=== PATIENT | female | born 1970 | race Caucasian/White ===

== ENCOUNTER 2020-04-27 11:07 | Outpatient (REF) | payer OTHER, SELFPAY ==
[2020-04-27 12:33] LABS: MANUAL DIFF FLAG NO
[2020-04-27 12:47] LABS: Basophils Absolute Auto 0.1 X10*3/uL (0.0-0.2); Basophils Percent Auto 1.4 % (0-2); Eosinophils Absolute Auto 0.6 X10*3/uL (0.0-0.4); Eosinophils Percent Auto 6.6 % (0-4); Hematocrit 44.9 % (37-47); Hemoglobin 15.1 g/dl (12.0-16.0); Imm Gran Abs Auto 0.03 X10*3/uL (0.00-0.03); Imm Gran Pct Auto 0.3 % (0.0-0.4); Lymphocytes Absolute Auto 2.5 X10*3/uL (1.2-4.9); Lymphocytes Percent Auto 27.1 % (20-40); Mean Corpuscular HGB Conc 33.6 g/dl (31.0-35.0); Mean Corpuscular Hemoglobin 31.9 pg (27.0-33.0); Mean Corpuscular Volume 94.9 fL (80-98); Mean Platelet Volume 10.9 fL (9.4-12.3); Monocytes Absolute Auto 0.7 X10*3/uL (0.1-1.2); Monocytes Percent Auto 7.6 % (2-11); Neutrophils Absolute Auto 5.2 X10*3/uL (2.0-8.3); Platelet Count 354 X10*3/uL (160-400); Red Blood Count 4.73 X10*6/uL (4.20-5.50); Red Cell Distribution Width 13.9 % (11.0-16.0); White Blood Count 9.1 X10*3/uL (4.8-10.8)
[2020-04-27 13:03] LABS: Estimated Average Glucose 100 mg/dL; Hemoglobin A1c % 5.1 %
[2020-04-27 13:38] LABS: Alanine Aminotransferase 42 U/L (0-31); Albumin Level 4.3 g/dL (3.5-5.0); Alkaline Phosphatase 106 U/L (39-117); Anion Gap 13 (12-20); Aspartate Amino Transferase 28 U/L (5-31); Bilirubin Total 0.5 mg/dL (0.0-1.0); Blood Urea Nitrogen 16 mg/dL (9-16); C Reactive Protein 0.07 mg/dL (< or = 0.50); Calcium 9.6 mg/dL (8.4-10.2); Carbon Dioxide 26 mmol/L (22-29); Chloride 105 mmol/L (96-108); Cholesterol 226 mg/dL; Estimated Glomerular Filt Rate > 60; Glucose Random 99 mg/dL (60-115); HDL Cholesterol 76 mg/dL; Iron 147 mcg/dL (30-160); LDL Cholesterol Calculated 139 mg/dl; Percent Iron Saturation 52 % (15-50); Potassium 4.1 mmol/l (3.3-5.1); Sodium 140 mmol/L (135-145); Total Iron Binding Capacity 281 mcg/dL (228-428); Total Protein 6.9 g/dL (6.5-8.0); Triglycerides 56 mg/dL; Unsaturated Iron Binding 134 ug/dL
[2020-04-27 13:45] LABS: Ferritin 66 ng/mL (10-250); TSH reflex Free T4 1.15 mIU/mL (0.32-4.0); Vitamin D 25-OH Total 50.4 ng/mL (>30)
[2020-04-27 14:04] LABS: Vitamin B12 621 pg/mL (200-900)
[2020-04-29 15:46] LABS: Zinc 83 mcg/dL (60-130)
[2020-05-02 12:22] LABS: Vitamin B1 17 nmol/L (8-30)
[2020-05-03 18:16] LABS: Vitamin A 53 mcg/dL (38-98)
== END 2020-04-27 11:08 | disposition home or self-care (01) ==
LOC: HO.LAB 11:07
PROVIDERS: PCP Internal Medicine; Visit Provider Surgery
DX: K91.2 Postsurgical malabsorption, not elsewhere classified (principal)
CPT/HCPCS: 36415; 80053; 80061; 82306; 82607; 82728; 82746; 83036; 83525; 83540; 84425; 84443; 84590; 84630; 85025; 86140

== ENCOUNTER → 2020-05-16 14:31 | Outpatient (BNVA) | payer OTHER, SELFPAY | PROVIDERS: PCP Internal Medicine; Visit Provider Surgery | DX: E65 Localized adiposity (principal); F17.200 Nicotine dependence, unspecified, uncomplicated; Z90.3 Acquired absence of stomach [part of] | CPT/HCPCS: 99212 ==

== ENCOUNTER → 2020-09-11 11:30 | Outpatient (BNVA) | payer OTHER, SELFPAY | PROVIDERS: PCP Internal Medicine; Visit Provider Physician Assistant | DX: K91.2 Postsurgical malabsorption, not elsewhere classified (principal); F17.200 Nicotine dependence, unspecified, uncomplicated; Z90.3 Acquired absence of stomach [part of] | CPT/HCPCS: 99212 ==

== ENCOUNTER → 2020-10-17 13:03 | Outpatient (BNVA) | payer OTHER, SELFPAY | PROVIDERS: PCP Internal Medicine; Referring Provider Internal Medicine; Visit Provider Dietitian, Registered | DX: Z68.25 Body mass index [BMI] 25.0-25.9, adult (principal); F17.210 Nicotine dependence, cigarettes, uncomplicated | CPT/HCPCS: 97803 ==

== ENCOUNTER → 2021-01-23 13:45 | Outpatient (BNVA) | payer MEDICARE, OTHER, SELFPAY | PROVIDERS: PCP Internal Medicine; Referring Provider Internal Medicine; Visit Provider Surgery | DX: E66.3 Overweight (principal); E65 Localized adiposity; F17.200 Nicotine dependence, unspecified, uncomplicated; Z90.3 Acquired absence of stomach [part of]; Z68.25 Body mass index [BMI] 25.0-25.9, adult | CPT/HCPCS: 99212 ==

== ENCOUNTER → 2021-04-13 08:09 | Outpatient (BNVA) | payer OTHER, MEDICARE, SELFPAY | PROVIDERS: PCP Internal Medicine; Visit Provider Dietitian, Registered | DX: E66.9 Obesity, unspecified (principal); Z68.25 Body mass index [BMI] 25.0-25.9, adult | CPT/HCPCS: 97803 ==

== ENCOUNTER 2021-04-20 10:04 | Outpatient (REF) | payer MEDICARE, OTHER, SELFPAY ==
[2021-04-20 10:40] LABS: MANUAL DIFF FLAG NO
[2021-04-20 10:55] LABS: Basophils Absolute Auto 0.1 X10*3/uL (0.0-0.2); Basophils Percent Auto 1.3 % (0-2); Eosinophils Absolute Auto 0.1 X10*3/uL (0.0-0.4); Eosinophils Percent Auto 2.3 % (0-4); Hematocrit 43.5 % (37.0-47.0); Hemoglobin 14.3 g/dl (12.0-16.0); Imm Gran Abs Auto 0.01 X10*3/uL (0.00-0.03); Imm Gran Pct Auto 0.2 % (0.0-0.4); Lymphocytes Absolute Auto 1.7 X10*3/uL (1.2-4.9); Lymphocytes Percent Auto 27.2 % (20-40); Mean Corpuscular HGB Conc 32.9 g/dl (31.0-35.0); Mean Corpuscular Hemoglobin 31.2 pg (27.0-33.0); Mean Platelet Volume 10.6 fL (9.4-12.3); Monocytes Absolute Auto 0.6 X10*3/uL (0.1-1.2); Monocytes Percent Auto 9.6 % (2-11); Neutrophils Absolute Auto 3.7 x10*3/uL (2.0-8.3); Neutrophils Percent Auto 59.4 % (45-73); Platelet Count 306 X10*3/uL (160-400); Red Blood Count 4.58 X10*6/uL (4.20-5.50); Red Cell Distribution Width 13.4 % (11.0-16.0); White Blood Count 6.2 X10*3/uL (4.8-10.8)
[2021-04-20 11:15] LABS: Estimated Average Glucose 91 mg/dL; Hemoglobin A1c % 4.8 %
[2021-04-20 11:34] LABS: Anion Gap 13 (12-20); Blood Urea Nitrogen 14 mg/dL (9-16); C Reactive Protein 0.05 mg/dL (< or = 0.50); Calcium 9.5 mg/dL (8.4-10.2); Carbon Dioxide 23 mmol/L (22-29); Chloride 108 mmol/L (96-108); Cholesterol 204 mg/dL; Estimated Glomerular Filt Rate > 60; Glucose Random 97 mg/dL (60-115); HDL Cholesterol 72 mg/dL; Iron 115 mcg/dL (30-160); LDL Cholesterol Calculated 120 mg/dl; Percent Iron Saturation 38 % (15-50); Potassium 4.6 mmol/L (3.3-5.1); Sodium 139 mmol/L (135-145); Total Iron Binding Capacity 304 mcg/dL (228-428); Triglycerides 60 mg/dL; Unsaturated Iron Binding 189 ug/dL
[2021-04-20 11:40] LABS: Ferritin 32 ng/mL (10-250); TSH reflex Free T4 1.51 uIU/mL (0.32-4.0); Vitamin D 25-OH Total 28.1 ng/mL (>30)
[2021-04-20 11:55] LABS: Folate 6.1 ng/mL (> or = 4.0); Vitamin B12 377 pg/mL (200-900)
[2021-04-23 12:01] LABS: Calcium (PTHI) 9.8 mg/dL (8.6-10.4); PTHI 40 pg/mL (14-64)
[2021-04-24 02:32] LABS: Zinc 75 mcg/dL (60-130)
[2021-04-24 21:56] LABS: Vitamin A 47 mcg/dL (38-98)
[2021-04-25 16:56] LABS: Vitamin B1 14 nmol/L (8-30)
== END 2021-04-20 10:05 | disposition home or self-care (01) ==
LOC: HO.LAB 10:04
PROVIDERS: PCP Internal Medicine; Visit Provider Physician Assistant Surgical
DX: E66.3 Overweight (principal); K91.2 Postsurgical malabsorption, not elsewhere classified; Z90.3 Acquired absence of stomach [part of]
CPT/HCPCS: 36415; 80048; 80061; 82306; 82607; 82728; 82746; 83036; 83540; 83970; 84425; 84443; 84590; 84630; 85025; 86140

== ENCOUNTER → 2021-10-03 08:07 | Outpatient (BNVA) | payer MEDICARE, OTHER, SELFPAY | PROVIDERS: PCP Internal Medicine; Visit Provider Physician Assistant Surgical | DX: Z13.89 Encounter for screening for other disorder (principal) | CPT/HCPCS: Q3014 ==

== ENCOUNTER 2022-04-08 11:04 | Outpatient (REF) | payer MEDICARE, SELFPAY ==
[2022-04-08 11:24] LABS: MANUAL DIFF FLAG NO
[2022-04-08 11:54] LABS: Basophils Absolute Auto 0.1 X10*3/uL (0.0-0.2); Basophils Percent Auto 1.5 % (0-2); Eosinophils Absolute Auto 0.2 X10*3/uL (0.0-0.4); Eosinophils Percent Auto 2.4 % (0-4); Hematocrit 44.9 % (37.0-47.0); Hemoglobin 14.9 g/dl (12.0-16.0); Imm Gran Abs Auto 0.01 X10*3/uL (0.00-0.03); Imm Gran Pct Auto 0.1 % (0.0-0.4); Lymphocytes Absolute Auto 1.9 X10*3/uL (1.2-4.9); Lymphocytes Percent Auto 26.2 % (20-40); Mean Corpuscular HGB Conc 33.2 g/dl (31.0-35.0); Mean Corpuscular Hemoglobin 32.1 pg (27.0-33.0); Mean Corpuscular Volume 96.8 fL (80.0-98.0); Mean Platelet Volume 10.8 fL (9.4-12.3); Monocytes Absolute Auto 0.7 X10*3/uL (0.1-1.2); Monocytes Percent Auto 8.8 % (2-11); Neutrophils Absolute Auto 4.5 x10*3/uL (2.0-8.3); Platelet Count 286 X10*3/uL (160-400); Red Blood Count 4.64 X10*6/uL (4.20-5.50); Red Cell Distribution Width 14.1 % (11.0-16.0); White Blood Count 7.4 X10*3/uL (4.8-10.8)
[2022-04-08 12:36] LABS: Alanine Aminotransferase 28 U/L (0-31); Albumin Level 4.5 g/dL (3.5-5.0); Alkaline Phosphatase 106 U/L (39-117); Anion Gap 15 (12-20); Aspartate Amino Transferase 23 U/L (5-31); Bilirubin Total 0.5 mg/dL (0.0-1.0); Blood Urea Nitrogen 16 mg/dL (9-16); C Reactive Protein 0.03 mg/dL (< or = 0.50); Calcium 9.8 mg/dL (8.4-10.2); Carbon Dioxide 25 mmol/L (22-29); Chloride 108 mmol/L (96-108); Cholesterol 219 mg/dL; Estimated Glomerular Filt Rate > 60; Glucose Random 93 mg/dL (60-115); HDL Cholesterol 78 mg/dL; Iron 115 mcg/dL (30-160); LDL Cholesterol Calculated 132 mg/dl; Percent Iron Saturation 35 % (15-50); Sodium 144 mmol/L (135-145); Total Iron Binding Capacity 328 mcg/dL (228-428); Total Protein 6.9 g/dL (6.5-8.0); Triglycerides 49 mg/dL; Unsaturated Iron Binding 213 ug/dL
[2022-04-08 12:58] LABS: Ferritin 20 ng/mL (10-250); Insulin 4 uU/mL (2-29); TSH reflex Free T4 1.26 uIU/mL (0.32-4.0); Vitamin D 25-OH Total 35.5 ng/mL (>30)
[2022-04-08 13:01] LABS: Folate 9.3 ng/mL (> or = 4.0); Vitamin B12 927 pg/mL (200-900)
[2022-04-09 11:41] LABS: Calcium (PTHI) 9.5 mg/dL (8.6-10.4); PTHI 50 pg/mL (16-77)
[2022-04-11 14:11] LABS: Zinc 81 mcg/dL (60-130)
[2022-04-12 18:40] LABS: Vitamin A 49 mcg/dL (38-98)
[2022-04-13 12:26] LABS: Vitamin B1 23 nmol/L (8-30)
== END 2022-04-08 11:05 | disposition home or self-care (01) ==
LOC: HO.LAB 11:04
PROVIDERS: Referring Provider Nurse Practitioner Adult Health; Visit Provider Physician Assistant Surgical
DX: K91.2 Postsurgical malabsorption, not elsewhere classified (principal); Z90.3 Acquired absence of stomach [part of]
CPT/HCPCS: 36415; 80053; 80061; 82306; 82607; 82728; 82746; 83525; 83540; 83970; 84425; 84443; 84590; 84630; 85025; 86140

== ENCOUNTER → 2022-04-12 10:37 | Outpatient (BNVA) | payer MEDICARE, SELFPAY | PROVIDERS: PCP Internal Medicine; Referring Provider Internal Medicine; Visit Provider Physician Assistant Surgical | DX: K90.49 Malabsorption due to intolerance, not elsewhere classified (principal); Z90.3 Acquired absence of stomach [part of] | CPT/HCPCS: 99212 ==

== ENCOUNTER 2024-02-06 10:05 | Outpatient (AMB) | payer MEDICARE, SELFPAY ==
--- NOTE | 2024-02-06 10:09 | MHC.OFFVISWM ---
VS Expanded 02/06/24 10:23 BP 130/59 L Blood Pressure Location Rt brachial Blood Pressure Position Sitting Pulse 84 Pulse Source Pulse Oximeter Temp 96.6 F L Temperature Source Temporal Artery Scan Pulse Oximetry 96 Oxygen Delivery Method Room Air Height 5 ft Weight 142 lb 12.8 oz BMI 27.9 Body Fat % 28.4 Body Fat Mass 40.6 Fat Free Mass 102.0 Visceral Fat Rating 7.0 Body Water % 50.7 Body Water Mass 72.4 Muscle Mass/Score 96.8 Basal Metabolic Rate/Score 1,362 Intake Visit Reasons: (OV) PO LSG 02/17/2019 Receivables Specialist Required: No Allergies shellfish derived [SHELLFISH DERIVED] Allergy (Unknown, Verified 02/06/24 10:12) HIVES,FACIAL SWELLING shellfish Allergy (Unknown, Uncoded 04/12/22 10:46) Hives Medication List - Last Reconciled 02/06/24 by TEOFILO Ortega calcium citrate-vitamin D3 315 mg-6.25 mcg (250 unit) 1 tab PO BID gabapentin 300 mg PO BID [hair skin and nails PO] hydroxyzine pamoate 50 mg PO BEDTIME PRN levomilnacipran ER (Fetzima) 120 mg PO DAILY topiramate 200 mg PO BEDTIME [vitamin c PO] HPI Comments Details: This?a?51?yo female who is s/p LSG without hiatal hernia repair on?02/17/[address] Ryan. Presents for 5 year post op visit. Last seen on 04/12/2022, with a weight of 113.4 pounds, with a BMI of 22.1. Weight today is 142.8 lb with a BMI of 27.9. She started the program at 287 pounds and walking with a cane. She has graduated school and excited to get back on track. Present meal plan includes: Slim fast high protein w grenadian yogurt 35 gm 1 simply protein bar, 12-15 gm handful of almonds or pistachios meal 3-4 oz protein and 3-4 oz vegetables or salad Drinking 100 oz daily of water ? Exercise routine includes: walking outside, 3 d per week, 1/2 mi yoga, 3-4 d per week outdoor bike 2 d per week Any post op complications: none ADDY: resolved DM: resolved HTN: never Hyperlipidemia: never GERD:?0-5 scale ??0 = no symptoms ??1 = symptoms noticeable but not bothersome 2 =symptoms bothersome but not daily ? 3 = symptoms bothersome and daily 4 = symptoms affect daily activities 5 = symptoms are incapacitating, unable to do daily activities ? How bad is the heartburn: 0 ? Heartburn while lying down: 0 ? Heartburn when standing up: 0 ? Heartburn after meals: 0 ? Does heartburn change your diet: 0 ? Does heartburn wake you up from sleep: 0 ? Do you have difficulty swallowin ? Do you have pain with swallowin ? If you take medicine for your reflux, does this affect your daily life: 0 Satisfaction with present condition - satisfied or not satisfied: mildly satisfied [facility] Medical History Intestinal malabsorption following gastrectomy Lumbar degenerative disc disease Depression Anxiety Spinal stenosis Obstructive sleep apnea treated with continuous positive airway pressure (CPAP) Bipolar disorder Surgical History History of sleeve gastrectomy Hx of hernia repair Hx of ankle fusion Hx of oophorectomy Family History Father Hypertension Diabetes mellitus Diabetes insipidus Mother COPD (chronic obstructive pulmonary disease) Heart failure Brother Diabetes mellitus Sister No problems noted. Social History Alcohol intake: never Tobacco use type: Smokeless Tobacco Cigarettes Per Day: 10 Physical Exam Const General: cooperative and no acute distress Orientation/consciousness: patient oriented x3 Resp Effort & Inspection: normal respiratory effort Auscultation: clear to auscultation bilaterally Cardio Rate: regular rate Rhythm: regular rhythm GI Inspection: Yes normal to inspection and Yes incision (well healed) Palpation (GI): Soft to palpation and no masses Neuro General: patient oriented x3 Assessment & Plan Assessment & Plan (1) History of sleeve gastrectomy: Comment: with hiatal hernia repair - 02/24/2019 Code(s): Z90.3 - Acquired absence of stomach [part of] Category: Surgical Plan: Check yearly labs Change meal plans slightly: Slim fast high protein rtd 20 gm 1 simply protein bar, 12-15 gm handful of almonds or pistachios meal 3-4 oz protein and 3-4 oz vegetables or salad Strongly encouraged to start using her elliptical machine daily. Encouraged to track calories when walking outside with the [employer] tammy. we will have her return to the office in approximately 1 month for follow-up. Orders: Orders Insulin Today E66.3 - Overweight, F17.200 - Nicotine dependence, unspecified, uncomplicated, K91.2 - Postsurgical malabsorption, not elsewhere classified, Z90.3 - Acquired absence of stomach [part of] Lipid Panel Today E66.3 - Overweight, F17.200 - Nicotine dependence, unspecified, uncomplicated, K91.2 - Postsurgical malabsorption, not elsewhere classified, Z90.3 - Acquired absence of stomach [part of] Zinc Today E66.3 - Overweight, F17.200 - Nicotine dependence, unspecified, uncomplicated, K91.2 - Postsurgical malabsorption, not elsewhere classified, Z90.3 - Acquired absence of stomach [part of] C Reactive Protein Today E66.3 - Overweight, F17.200 - Nicotine dependence, unspecified, uncomplicated, K91.2 - Postsurgical malabsorption, not elsewhere classified, Z90.3 - Acquired absence of stomach [part of] Vitamin B1 Today E66.3 - Overweight, F17.200 - Nicotine dependence, unspecified, uncomplicated, K91.2 - Postsurgical malabsorption, not elsewhere classified, Z90.3 - Acquired absence of stomach [part of] Vitamin A Today E66.3 - Overweight, F17.200 - Nicotine dependence, unspecified, uncomplicated, K91.2 - Postsurgical malabsorption, not elsewhere classified, Z90.3 - Acquired absence of stomach [part of] TSH reflex Free T4 Today E66.3 - Overweight, F17.200 - Nicotine dependence, unspecified, uncomplicated, K91.2 - Postsurgical malabsorption, not elsewhere classified, Z90.3 - Acquired absence of stomach [part of] Vitamin D 25-OH Total Today E66.3 - Overweight, F17.200 - Nicotine dependence, unspecified, uncomplicated, K91.2 - Postsurgical malabsorption, not elsewhere classified, Z90.3 - Acquired absence of stomach [part of] Hemoglobin A1c Today E66.3 - Overweight, F17.200 - Nicotine dependence, unspecified, uncomplicated, K91.2 - Postsurgical malabsorption, not elsewhere classified, Z90.3 - Acquired absence of stomach [part of] Complete Blood Count Auto Diff Today E66.3 - Overweight, F17.200 - Nicotine dependence, unspecified, uncomplicated, K91.2 - Postsurgical malabsorption, not elsewhere classified, Z90.3 - Acquired absence of stomach [part of] IRON PROFILE Today E66.3 - Overweight, F17.200 - Nicotine dependence, unspecified, uncomplicated, K91.2 - Postsurgical malabsorption, not elsewhere classified, Z90.3 - Acquired absence of stomach [part of] Comprehensive Met. Panel Today E66.3 - Overweight, F17.200 - Nicotine dependence, unspecified, uncomplicated, K91.2 - Postsurgical malabsorption, not elsewhere classified, Z90.3 - Acquired absence of stomach [part of] Vitamin B12 and Folate Today E66.3 - Overweight, F17.200 - Nicotine dependence, unspecified, uncomplicated, K91.2 - Postsurgical malabsorption, not elsewhere classified, Z90.3 - Acquired absence of stomach [part of] Ferritin Today E66.3 - Overweight, F17.200 - Nicotine dependence, unspecified, uncomplicated, K91.2 - Postsurgical malabsorption, not elsewhere classified, Z90.3 - Acquired absence of stomach [part of]
[2024-02-06 10:23] VITALS: BP 130/59; PULSE 84; TEMP 35.9; O2SAT 96; BMI 27.9
== END 2024-02-06 10:44 | disposition home or self-care (01) ==
PROVIDERS: PCP Internal Medicine; Visit Provider Physician Assistant Surgical
DX: E66.3 Overweight (principal); Z68.27 Body mass index [BMI] 27.0-27.9, adult; Z90.3 Acquired absence of stomach [part of]; Z98.84 Bariatric surgery status
CPT/HCPCS: 99214

== ENCOUNTER → 2024-02-06 10:05 | Outpatient (BNVA) | payer MEDICARE, SELFPAY | PROVIDERS: PCP Internal Medicine; Visit Provider Physician Assistant Surgical | DX: E66.3 Overweight (principal); K91.2 Postsurgical malabsorption, not elsewhere classified; F17.210 Nicotine dependence, cigarettes, uncomplicated; Z71.3 Dietary counseling and surveillance; Z98.84 Bariatric surgery status; Z68.27 Body mass index [BMI] 27.0-27.9, adult | CPT/HCPCS: 99212 ==

== ENCOUNTER 2024-02-16 09:12 | Outpatient (REF) | payer MEDICARE, SELFPAY ==
[2024-02-16 09:33] LABS: MANUAL DIFF FLAG NO
[2024-02-16 10:23] LABS: Basophils Absolute Auto 0.1 X10*3/uL (0.0-0.2); Basophils Percent Auto 2.2 % (0-2); Eosinophils Absolute Auto 0.5 X10*3/uL (0.0-0.4); Eosinophils Percent Auto 9.5 % (0-4); Hematocrit 42.9 % (37.0-47.0); Hemoglobin 13.7 g/dl (12.0-16.0); Imm Gran Abs Auto 0.02 X10*3/uL (0.00-0.03); Imm Gran Pct Auto 0.4 % (0.0-0.4); Lymphocytes Absolute Auto 1.4 X10*3/uL (1.2-4.9); Lymphocytes Percent Auto 24.7 % (20-40); Mean Corpuscular HGB Conc 31.9 g/dl (31.0-35.0); Mean Corpuscular Hemoglobin 29.5 pg (27.0-33.0); Mean Corpuscular Volume 92.5 fL (80.0-98.0); Mean Platelet Volume 11.2 fL (9.4-12.3); Monocytes Absolute Auto 0.6 X10*3/uL (0.1-1.2); Monocytes Percent Auto 10.3 % (2-11); Neutrophils Absolute Auto 2.9 x10*3/uL (2.0-8.3); Neutrophils Percent Auto 52.9 % (45-73); Platelet Count 287 X10*3/uL (160-400); Red Blood Count 4.64 X10*6/uL (4.20-5.50); Red Cell Distribution Width 14.8 % (11.0-16.0); White Blood Count 5.6 X10*3/uL (4.8-10.8)
[2024-02-16 11:14] LABS: Vitamin B12 550 pg/mL (200-900)
[2024-02-16 11:17] LABS: Alanine Aminotransferase 29 U/L (0-31); Albumin Level 4.5 g/dL (3.5-5.0); Alkaline Phosphatase 81 U/L (39-117); Anion Gap 12 (12-20); Aspartate Amino Transferase 28 U/L (5-31); Bilirubin Total 0.3 mg/dL (0.0-1.0); Blood Urea Nitrogen 13 mg/dL (9-16); C Reactive Protein < 0.10 mg/dL (< or = 0.50); Calcium 10.2 mg/dL (8.4-10.2); Carbon Dioxide 25 mmol/L (22-29); Chloride 110 mmol/L (96-108); Cholesterol 258 mg/dL (<200); Estimated Glomerular Filt Rate > 60; Ferritin 15 ng/mL (10-250); Glucose Random 88 mg/dL (60-115); HDL Cholesterol 77 mg/dL (>40); Insulin 2 uU/mL (2-29); Iron 62 mcg/dL (30-160); LDL Cholesterol Calculated 171 mg/dL (<100); Percent Iron Saturation 21 % (15-50); Potassium 3.9 mmol/L (3.3-5.1); Sodium 143 mmol/L (135-145); TSH reflex Free T4 1.43 uIU/mL (0.32-4.0); Total Iron Binding Capacity 293 mcg/dL (228-428); Total Protein 7.2 g/dL (6.5-8.0); Triglycerides 51 mg/dL (<150); Unsaturated Iron Binding 231 ug/dL; Vitamin D 25-OH Total 33.3 ng/mL (>30)
[2024-02-16 11:52] LABS: Estimated Average Glucose 103 mg/dL; Folate 7.6 ng/mL (> or = 4.0); Hemoglobin A1c % 5.2 % (<6.0); Total Hemoglobin (HGBA1C) 3555.3158 umol/L
[2024-02-19 02:13] LABS: Vitamin A 38 mcg/dL (38-98)
[2024-02-19 04:43] LABS: Zinc 94 mcg/dL (60-130)
[2024-02-21 10:17] LABS: Vitamin B1 48 nmol/L (8-30)
== END 2024-02-16 09:13 | disposition home or self-care (01) ==
LOC: HO.LAB 09:12
PROVIDERS: Visit Provider Physician Assistant Surgical
DX: K91.2 Postsurgical malabsorption, not elsewhere classified (principal); F17.200 Nicotine dependence, unspecified, uncomplicated; E66.3 Overweight; Z90.3 Acquired absence of stomach [part of]
CPT/HCPCS: 36415; 80053; 80061; 82306; 82607; 82728; 82746; 83036; 83525; 83540; 84425; 84443; 84590; 84630; 85025; 86140

== ENCOUNTER 2024-03-12 13:00 | Outpatient (AMB) | payer MEDICARE, SELFPAY ==
--- NOTE | 2024-03-12 10:27 | A.OFFVIS_ITS ---
VS Expanded 03/12/24 10:30 Height 5 ft Weight 142 lb 3 oz BMI 27.8 Intake Visit Reasons: (tV) PO LSG 02/17/2019 Mental Hygienist Required: No Allergies shellfish derived [SHELLFISH DERIVED] Allergy (Unknown, Verified 02/06/24 10:12) HIVES,FACIAL SWELLING shellfish Allergy (Unknown, Uncoded 04/12/22 10:46) Hives Medication List - Last Reconciled 03/12/24 by TEOFILO Ortega calcium citrate-vitamin D3 315 mg-6.25 mcg (250 unit) 1 tab PO BID gabapentin 300 mg PO BID [hair skin and nails PO] hydroxyzine pamoate 50 mg PO BEDTIME PRN levomilnacipran ER (Fetzima) 120 mg PO DAILY topiramate 200 mg PO BEDTIME [vitamin c PO] HPI Comments Details: This?a?51?yo female who is s/p LSG without hiatal hernia repair on?02/17/[address] Ryan. Presents for 5 year post op visit. Last seen in January 2024 and before that was 04/12/2022, with a weight of 113.4 pounds, with a BMI of 22.1. Weight at last visit was 142.8 lb with a BMI of 27.9. Weight today is 142.3 with a BMI of 27.8. She started the program at 287 pounds and walking with a cane. She states she has been thinking about routine. She is not following a strict r outine. She does not have a car but does have an elliptical at home. Wants to try [employer] tammy for people with adhd. Present meal plan includes: Slim fast high protein 20 gm 1 simply protein bar, 12-15 gm handful of almonds or pistachios meal 3-4 oz protein and 3-4 oz vegetables or salad Drinking 90 oz daily of water ? Exercise routine includes: walking outside, 4 d per week, 1/2 mi [facility] Medical History Intestinal malabsorption following gastrectomy Lumbar degenerative disc disease Depression Anxiety Spinal stenosis Obstructive sleep apnea treated with continuous positive airway pressure (CPAP) Bipolar disorder Surgical History History of sleeve gastrectomy Hx of hernia repair Hx of ankle fusion Hx of oophorectomy Family History Father Hypertension Diabetes mellitus Diabetes insipidus Mother COPD (chronic obstructive pulmonary disease) Heart failure Brother Diabetes mellitus Sister No problems noted. Social History Alcohol intake: never Tobacco use type: Smokeless Tobacco Cigarettes Per Day: 10 Telehealth Telehealth Telehealth Platform: Telephone Location of provider rendering services: practice address Location of patient: address on file Patient Identification confirmed using: Name, : Yes Telehealth method: voice only Patient verbally consented to treatment: Yes Patient verbally consented to billing insurance company: Yes Patient informed of any privacy concerns related to visit: Yes Minutes spent on Phone/Video with Pt.: 15 Assessment & Plan Assessment & Plan (1) Overweight: Code(s): E66.3 - Overweight Category: Medical Plan: Patient will continue current meal plan. She we will have a goal of sustaining exercise daily by next visit. She will record data including time, distance, calories burned. Continue to follow meal plan. Hopefully the exercise will start to create a routine for her. She will text with any questions or concerns.
[2024-03-12 10:30] VITALS: BMI 27.8
== END 2024-03-12 13:36 | disposition home or self-care (01) ==
LOC: HO.HBS 13:09
PROVIDERS: PCP Internal Medicine; Visit Provider Physician Assistant Surgical
DX: E66.3 Overweight (principal); Z68.27 Body mass index [BMI] 27.0-27.9, adult; Z90.3 Acquired absence of stomach [part of]; Z98.84 Bariatric surgery status
CPT/HCPCS: 98967

== ENCOUNTER → 2024-03-12 13:00 | Outpatient (BNVA) | payer MEDICARE, SELFPAY | PROVIDERS: PCP Internal Medicine; Visit Provider Physician Assistant Surgical | DX: Z90.3 Acquired absence of stomach [part of] (principal); E66.3 Overweight; F17.200 Nicotine dependence, unspecified, uncomplicated; K91.2 Postsurgical malabsorption, not elsewhere classified ==

== ENCOUNTER 2024-04-16 11:00 | Outpatient (AMB) | payer MEDICARE, MEDICAID, SELFPAY ==
--- NOTE | 2024-04-16 10:02 | MHC.OFFVISWM ---
VS Expanded 04/16/24 10:03 Height 5 ft Weight 148 lb 2 oz BMI 28.9 Intake Visit Reasons: (tV) PO LSG 02/17/2019 Allergies shellfish derived [SHELLFISH DERIVED] Allergy (Unknown, Verified 02/06/24 10:12) HIVES,FACIAL SWELLING shellfish Allergy (Unknown, Uncoded 04/12/22 10:46) Hives HPI Comments Details: This?a?51?yo female who is s/p LSG without hiatal hernia repair on?02/17/[address] Ryan. Presents for 5 year 2 month post op visit. Last seen in January 2024 and before that was 04/12/2022, with a weight of 113.4 pounds, with a BMI of 22.1. Weight at last visit was 142.8 lb with a BMI of 28.2. Weight today is 148.2 with a BMI of 28.9. She started the program at 287 pounds and walking with a cane. She states she has been thinking about routine. She is not following a strict routine. She does not have a car but does have an elliptical at home. Wants to try [employer] tammy for people with adhd. She continues to fight depression, continues to talk with her therapist 2 x per month, having missed 1 session. Present meal plan includes: Slim fast high protein 20 gm 1 simply protein bar, 12-15 gm handful of almonds or pistachios meal 3-4 oz protein and 3-4 oz vegetables or salad 1/2 c nuts Drinking 90 oz daily of water ? Exercise routine includes: walking outside or elliptical, 3 d per week, 3-4 mi PFSH Medical History Intestinal malabsorption following gastrectomy Lumbar degenerative disc disease Depression Anxiety Spinal stenosis Obstructive sleep apnea treated with continuous positive airway pressure (CPAP) Bipolar disorder Surgical History History of sleeve gastrectomy Hx of hernia repair Hx of ankle fusion Hx of oophorectomy Family History Father Hypertension Diabetes mellitus Diabetes insipidus Mother COPD (chronic obstructive pulmonary disease) Heart failure Brother Diabetes mellitus Sister No problems noted. Social History Alcohol intake: never Tobacco use type: Smokeless Tobacco Cigarettes Per Day: 10 Telehealth Telehealth Telehealth Platform: Telephone Location of provider rendering services: practice address Location of patient: address on file Patient Identification confirmed using: Name, : Yes Telehealth method: voice only Patient verbally consented to treatment: Yes Patient verbally consented to billing insurance company: Yes Patient informed of any privacy concerns related to visit: Yes Minutes spent on Phone/Video with Pt.: 15 Assessment & Plan Assessment & Plan (1) History of sleeve gastrectomy: Comment: with hiatal hernia repair - 02/24/2019 Code(s): Z90.3 - Acquired absence of stomach [part of] Category: Surgical Plan: change meal plan slightly to: Slim fast high protein 20 gm 1 simply protein bar, 12-15 gm meal 3 oz protein and 3 oz vegetables or salad Now has access to free ride on bus to get to [employer]
[2024-04-16 10:03] VITALS: BMI 28.9
== END 2024-04-16 11:40 | disposition home or self-care (01) ==
LOC: HO.HBS 11:08
PROVIDERS: PCP Internal Medicine; Visit Provider Physician Assistant Surgical
DX: E66.3 Overweight (principal); Z68.28 Body mass index [BMI] 28.0-28.9, adult; Z90.3 Acquired absence of stomach [part of]; Z98.84 Bariatric surgery status
CPT/HCPCS: 98967

== ENCOUNTER 2024-06-14 11:30 | Outpatient (AMB) | payer OTHER, MEDICARE, SELFPAY ==
--- NOTE | 2024-06-14 09:50 | A.OFFVIS_ITS ---
VS Expanded 06/14/24 09:51 Height 5 ft Weight 125 lb 6 oz BMI 24.5 Intake Visit Reasons: (tV) PO LSG 02/17/2019 Inspector Glass Or Mirror Required: No Allergies shellfish derived [SHELLFISH DERIVED] Allergy (Unknown, Verified 02/06/24 10:12) HIVES,FACIAL SWELLING shellfish Allergy (Unknown, Uncoded 04/12/22 10:46) Hives Medication List - Last Reconciled 06/14/24 by TEOFILO Ortega calcium citrate-vitamin D3 315 mg-6.25 mcg (250 unit) 1 tab PO BID gabapentin 300 mg PO BID [hair skin and nails PO] hydroxyzine pamoate 50 mg PO BEDTIME PRN levomilnacipran ER (Fetzima) 120 mg PO DAILY topiramate 200 mg PO BEDTIME [vitamin c PO] HPI Comments Details: This?a?53?yo female who is s/p LSG without hiatal hernia repair on?02/17/[address] Ryan. Presents for 5 year 4 month post op visit. Weight today is 125.6 with a BMI of 24.5. She started the program at 287 pounds and walking with a cane. She states she has been making better choices about getting out of the house. She has been using the bus to go to the gym or walk to the store. Present meal plan includes: Slim fast high protein 20 gm 1 simply protein bar, 12-15 gm meal 3 oz protein and 3 oz vegetables or salad Drinking 90 oz daily of water ? Exercise routine includes: PF - 5 days per week - 1 hr weight machines, 40 min on treadmill, 400 adi walking outside or elliptical, 3 d per week, 3-4 mi PFSH Medical History Intestinal malabsorption following gastrectomy Lumbar degenerative disc disease Depression Anxiety Spinal stenosis Obstructive sleep apnea treated with continuous positive airway pressure (CPAP) Bipolar disorder Surgical History History of sleeve gastrectomy Hx of hernia repair Hx of ankle fusion Hx of oophorectomy Family History Father Hypertension Diabetes mellitus Diabetes insipidus Mother COPD (chronic obstructive pulmonary disease) Heart failure Brother Diabetes mellitus Sister No problems noted. Social History Alcohol intake: never Tobacco use type: Smokeless Tobacco Cigarettes Per Day: 10 Telehealth Telehealth Telehealth Platform: Telephone Location of provider rendering services: practice address Location of patient: address on file Patient Identification confirmed using: Name, : Yes Telehealth method: voice only Patient verbally consented to treatment: Yes Patient verbally consented to billing insurance company: Yes Patient informed of any privacy concerns related to visit: Yes Minutes spent on Phone/Video with Pt.: 12 Assessment & Plan Assessment & Plan (1) History of sleeve gastrectomy: Comment: with hiatal hernia repair - 02/24/2019 Code(s): Z90.3 - Acquired absence of stomach [part of] Category: Surgical Plan: Patient is making excellent progress. She is now committed to going to the gym and following her meal plan. She has achieved a healthy weight. We will have her return to the office in approximately 2 months per her request and she was encouraged to text with any questions or concerns
[2024-06-14 09:51] VITALS: BMI 24.5
== END 2024-06-14 11:50 | disposition home or self-care (01) ==
LOC: HO.HBS 11:49
PROVIDERS: PCP Internal Medicine; Visit Provider Physician Assistant Surgical
DX: Z71.3 Dietary counseling and surveillance (principal); Z90.3 Acquired absence of stomach [part of]; Z98.84 Bariatric surgery status
CPT/HCPCS: G2252

== ENCOUNTER → 2024-06-14 11:30 | Outpatient (BNVA) | payer OTHER, MEDICARE, SELFPAY | PROVIDERS: PCP Internal Medicine; Visit Provider Physician Assistant Surgical | DX: Z90.3 Acquired absence of stomach [part of] (principal); E66.3 Overweight; F17.200 Nicotine dependence, unspecified, uncomplicated; K91.2 Postsurgical malabsorption, not elsewhere classified ==

== ENCOUNTER 2024-07-20 13:00 | Outpatient (AMB) | payer OTHER, SELFPAY ==
--- NOTE | 2024-07-20 13:25 | MHC.OFFVIS ---
Vital Signs 07/20/24 13:35 Height 5 ft Weight 127 lb BMI 24.8 BP 136/64 Blood Pressure Location Rt brachial Position Sitting Pulse 80 Intake Visit Reasons: Lump on left back Intake Note: Patient referred by pcp Dr. Deshpande for lump on lt back. Present for yrs. Patient c/o: hx of trauma. Hematoma removed 2yrs ago at [facility]. 2nd concern with Rt neck. Present for yrs Denies pain. Neck and shoulder feel sore. Acls Specialist Required: No Accompanied by: Self / Same As Patient Allergies shellfish derived [SHELLFISH DERIVED] Allergy (Unknown, Verified 07/20/24 13:32) HIVES,FACIAL SWELLING shellfish Allergy (Unknown, Uncoded 07/20/24 13:32) Hives HPI Comments Details: Patient presents for evaluation of several lipomas. One involves her 1. right neck, 2. right forearm, and numbers right lower back. She has had these for many years time. They are at present not very symptomatic but would just like to have them evaluated. She has history of lipoma excisions in the past. Chart was reviewed and patient evaluated. Patient was status post gastric bypass several years ago. She has maintained her weight loss with marked diligence in follow-up and diet. [facility] Medical History Intestinal malabsorption following gastrectomy Lumbar degenerative disc disease Depression Anxiety Spinal stenosis Obstructive sleep apnea treated with continuous positive airway pressure (CPAP) Bipolar disorder Surgical History History of sleeve gastrectomy Hx of hernia repair Hx of ankle fusion Hx of oophorectomy Family History Father Hypertension Diabetes mellitus Diabetes insipidus Mother COPD (chronic obstructive pulmonary disease) Heart failure Brother Diabetes mellitus Sister No problems noted. Social History Alcohol intake: never Tobacco use type: Smokeless Tobacco Cigarettes Per Day: 10 Physical Exam Vital Signs: Last Vital Signs Pulse 80 07/20/24 13:35 BP 136/64 07/20/24 13:35 BMI result Body Mass Index 24.8 Neck Other: Patient was a roughly 4 x 3 cm involving the right supraclavicular area. No other cervical periclavicular axillary adenopathy bilaterally demonstrated. Back/Spine/Pelvis Other: Patient was a scar in the right lower back. Above this is a 3 x 2 cm mass consistent with either lipoma or cyst. Extrem Other: Patient was and a roughly 2 x 1 cm involving the right proximal medial forearm Assessment & Plan Assessment & Plan (1) Multiple lipomas: Code(s): D17.9 - Benign lipomatous neoplasm, unspecified Category: Surgical Plan Patient was given therapeutic options which are observation or excision. She was operative for the former. Should these become more symptomatic, enlarging, more concerning, she has been instructed to contact the office. Otherwise patient will follow up p.r.n.. All questions answered. Coding Level of Care Code New Pt Level 4 (11730) Diagnoses Multiple lipomas D17.9
[2024-07-20 13:35] VITALS: BP 136/64; PULSE 80; BMI 24.8
== END 2024-07-20 13:56 | disposition home or self-care (01) ==
PROVIDERS: PCP Nurse Practitioner Family; Referring Provider Nurse Practitioner Family; Visit Provider Surgery
DX: D17.9 Benign lipomatous neoplasm, unspecified (principal)
CPT/HCPCS: 99204

== ENCOUNTER → 2024-07-20 13:00 | Outpatient (BNVA) | payer OTHER, MEDICAID, SELFPAY | PROVIDERS: PCP Nurse Practitioner Family; Referring Provider Nurse Practitioner Family; Visit Provider Surgery | DX: D17.9 Benign lipomatous neoplasm, unspecified (principal) | CPT/HCPCS: 99202 ==

== ENCOUNTER 2024-08-23 11:00 | Outpatient (AMB) | payer OTHER, SELFPAY ==
--- NOTE | 2024-08-23 10:51 | MHC.OFFVISWM ---
VS Expanded 08/23/24 10:52 Height 5 ft Weight 124 lb 7 oz BMI 24.3 Intake Visit Reasons: (tV) PO LSG 02/17/2019 Fax Machine Repairer Required: No Allergies shellfish derived [SHELLFISH DERIVED] Allergy (Unknown, Verified 07/20/24 13:32) HIVES,FACIAL SWELLING shellfish Allergy (Unknown, Uncoded 07/20/24 13:32) Hives Medication List - Last Reconciled 08/23/24 by TEOFILO Ortega calcium citrate-vitamin D3 315 mg-6.25 mcg (250 unit) 1 tab PO BID gabapentin 300 mg PO BID [hair skin and nails PO] hydroxyzine pamoate 50 mg PO BEDTIME PRN levomilnacipran ER (Fetzima) 120 mg PO DAILY topiramate 200 mg PO BEDTIME [vitamin c PO] HPI Comments Details: This?a?53?yo female who is s/p LSG without hiatal hernia repair on?02/17/[address] Ryan. Presents for 5 year 6 month post op visit. Weight today is 124.7 with a BMI of 24.3. She started the program at 287 pounds and walking with a cane. She states she has been making better choices about getting out of the house. She has been using the bus to go to the gym or walk to the store. She got a new PCP. She has been doing well with exercising, intermittently having a day a week with decreased energy with increased somnolence. No clear pattern or identifiable etiology. She will discuss this with her pcp Present meal plan includes: Slim fast high protein 20 gm 1 simply protein bar, 12-15 gm meal 3 oz protein and 3 oz vegetables or salad Drinking 90 oz daily of water ? Exercise routine includes: PF - 5 days per week - 1 hr weight machines, 40 min on treadmill, 400 adi walking outside or elliptical, 3 d per week, 3-4 mi PFSH Medical History Intestinal malabsorption following gastrectomy Lumbar degenerative disc disease Depression Anxiety Spinal stenosis Obstructive sleep apnea treated with continuous positive airway pressure (CPAP) Bipolar disorder Surgical History History of sleeve gastrectomy Hx of hernia repair Hx of ankle fusion Hx of oophorectomy Family History Father Hypertension Diabetes mellitus Diabetes insipidus Mother COPD (chronic obstructive pulmonary disease) Heart failure Brother Diabetes mellitus Sister No problems noted. Social History Alcohol intake: never Tobacco use type: Smokeless Tobacco Cigarettes Per Day: 10 Telehealth Telehealth Telehealth Platform: Telephone Location of provider rendering services: practice address Location of patient: address on file Patient Identification confirmed using: Name, : Yes Telehealth method: voice only Patient verbally consented to treatment: Yes Patient verbally consented to billing insurance company: Yes Patient informed of any privacy concerns related to visit: Yes Minutes spent on Phone/Video with Pt.: 10 Assessment & Plan Assessment & Plan (1) History of sleeve gastrectomy: Comment: with hiatal hernia repair - 02/24/2019 Code(s): Z90.3 - Acquired absence of stomach [part of] Category: Surgical Plan: Overall, doing very well. Maintaining a healthy weight and healthy lifestyle. Overall her energy level has increased and she is exercising consistently. She is however having one day per week with hypersomnolence. Unclear etiology. She is going to discuss this with her primary care physician. She has not been able to identify any consistent etiology. We will have her return to the office for her 6 year follow-up in February. Encouraged to text with any questions or concerns
[2024-08-23 10:52] VITALS: BMI 24.3
== END 2024-08-23 11:16 | disposition home or self-care (01) ==
LOC: HO.HBS 11:05
PROVIDERS: PCP Nurse Practitioner Family; Visit Provider Physician Assistant Surgical
DX: Z71.3 Dietary counseling and surveillance (principal); Z90.3 Acquired absence of stomach [part of]
CPT/HCPCS: 99213; G2211

== ENCOUNTER → 2024-08-23 11:00 | Outpatient (BNVA) | payer OTHER, SELFPAY | PROVIDERS: PCP Nurse Practitioner Family; Visit Provider Physician Assistant Surgical ==

== ENCOUNTER 2025-02-21 11:21 | Outpatient (AMB) | payer OTHER, SELFPAY ==
--- NOTE | 2025-02-21 11:01 | MHC.OFFVISWM ---
VS Expanded 02/21/25 11:04 Height 5 ft Weight 130 lb BMI 25.4 Intake Visit Reasons: (TV) PO LSG 02/17/2019 Allergies shellfish derived (SHELLFISH DERIVED) Allergy (Unknown, Verified 07/20/24 13:32) HIVES,FACIAL SWELLING shellfish Allergy (Unknown, Uncoded 07/20/24 13:32) Hives Medication List - Last Reconciled 02/21/25 by TEOFILO Ruiz calcium citrate-vitamin D3 315 mg-6.25 mcg (250 unit) 1 tab PO BID gabapentin 300 mg PO BID [hair skin and nails PO] hydroxyzine pamoate 50 mg PO BEDTIME PRN levomilnacipran ER (Fetzima) 120 mg PO DAILY topiramate 200 mg PO BEDTIME [vitamin c PO] HPI Comments Details: This?is a?54?yo F who is s/p LSG 02/17/2019. Presents for 6y post op visit. Weight at last visit on 08/23/2024 was 124.7 pounds with a BMI of 24.3. Weight today is 130 pounds, representing a 4.3 pound weight gain with a BMI today of 25.3.? No complaints of nausea, emesis, abdominal pain or reflux, or constipation. Last few months have been okay, not perfect . Sustained an neck/shoulder injury which affected her exercise. Her PCP is getting bloodwork for RA. Was diagnosed with early osteoporosis on bone scan. Present meal plan includes: Slim fast high protein 20 gm 1 simply protein bar, 12-15 gm meal 3 oz protein and 3 oz vegetables or salad Drinking 90 oz daily of water Exercise routine includes: PF - 5 days per week - 1 hr weight machines, 40 min on treadmill, 400 adi walking outside or elliptical, 3 d per week, 3-4 mi - continues to walk, but difficult to get to gym and do weight training; has been doing yoga instead PFSH Medical History Intestinal malabsorption following gastrectomy Lumbar degenerative disc disease Depression Anxiety Spinal stenosis Obstructive sleep apnea treated with continuous positive airway pressure (CPAP) Bipolar disorder Surgical History History of sleeve gastrectomy Hx of hernia repair Hx of ankle fusion Hx of oophorectomy Family History Father Hypertension Diabetes mellitus Diabetes insipidus Mother COPD (chronic obstructive pulmonary disease) Heart failure Brother Diabetes mellitus Sister No problems noted. Social History Alcohol intake: never Tobacco use type: Smokeless Tobacco Cigarettes Per Day: 10 Telehealth Telehealth Telehealth Platform: Telephone Location of provider rendering services: other Location of patient: address on file Patient Identification confirmed using: Name, : Yes Telehealth method: voice only Patient verbally consented to treatment: Yes Patient verbally consented to billing insurance company: Yes Patient informed of any privacy concerns related to visit: Yes Minutes spent on Phone/Video with Pt.: 16 Assessment & Plan Assessment & Plan (1) History of sleeve gastrectomy: Comment: with hiatal hernia repair - 02/24/2019 Code(s): Z90.3 - Acquired absence of stomach [part of] Category: Surgical (2) Overweight: Code(s): E66.3 - Overweight Category: Medical Plan Pt has a strong meal plan and exercise regimen; has had to decrease exercise recently due to injury but plans to increase again as she recovers. No changes made today. Pt plans to have labs done soon, orders in. RTC 6mo. Encouraged pt to reach out between visits with any concerns.
[2025-02-21 11:04] VITALS: BMI 25.4
--- OUTSIDE RECORDS SUMMARY | 2025-02-21 15:24 | XMS_ITS ---
Author Name [facility] Organization Unknown Care Team Organization Name Specialty Phone Email Start Date End Da te [facility] 04/16/2022 01/26/20 24
--- OUTSIDE RECORDS SUMMARY | 2025-02-21 15:24 | XMS_ITS | Clinical Summary ---
Author Organization [facility] Address [address] [place] [address] Phone Care Team Providers Care Natural Resources Extension Educator Name Role Phone Albina Stubbs Primary Care Provider [phone] Encounters Date Type Department Care Team Description 01/12/2025 8:49 AM EDT - 01/12/2025 11:59 PM EDT Hospital Encounter [facility] Bone Density [address] [place] [phone] Encounter for screening mammogram for malignant neoplasm of breast; Other specified disorders of bone density and structure, multiple sites Discharge Disposition: Home or Self Care 01/12/2025 8:48 AM EDT - 01/12/2025 11:59 PM EDT [facility] [address] [phone] Encounter for screening mammogram for malignant neoplasm of breast Discharge Disposition: Home or Self Care from Last 3 Months Surgical History Surgery Date Site/Laterality Comments SALPINGOOPHORECTOMY PROCEDURE: SC LAPAROSCOPY W/RMVL ADNEXAL STRUCTURES OTHER SURGICAL HISTORY 02/17/2019 PROCEDURE: ---- OTHER ----; COMMENT: Gastric sleeve Medical History Medical History Date Comments Pre-diabetes DX:Pre-diabetes Arthritis DX:Arthritis Asthma DX:Asthma Depressed DX:Depressed Stenosis of lumbosacral spine DX :Stenosis of lumbosacral spine Family History Medical History Relation Name Comments Diabetes Brother Other: heart attack Father Breast cancer Maternal Cousin COPD Mother Diabetes Mother Other: heart failure Mother Breast cancer Mother's Sister Ovarian cancer Neg Hx Relation Name Status Comments Brother Alive Father Maternal Cousin Alive Mother Alive Mother's Sister Alive Social History Tobacco Use Types Packs/Day Years Used Date Smoking Tobacco: Former Cigarettes Q uit: 02/07/2019 Smokeless Tobacco: Never Alcohol Use Standard Drinks/Week Comments No 0 (1 standard drink = 0.6 oz pur e alcohol) Comments No Sex and Gender Information Value Date Recorded Sex Assigned at Female 11/16/2024 10:42 AM EDT Legal Sex Female 10:12 PM EST Gender Identity Female 11/16/2024 10:42 AM EDT Sexual Orientation Not on file Obstetrics History Last Filed Vital Signs Vital Sign Reading Time Taken Comments Blood Pressure 112/58 12/31/2022 4:14 PM EDT Sit ting L Arm Pulse 84 12/31/2022 4:14 PM EDT Temperature - - Respiratory Rate - - Oxygen Saturation - - Inhaled Oxygen Concentration - - Weight 59 kg (130 lb) 01/12/2025 9:37 AM EDT Height 154.9 cm (5' 1 ) 01/12/2025 9:37 AM EDT Body Mass Index 24.56 01/12/2025 9:37 AM EDT Plan of Treatment Health Maintenance Due Date Last Done Comments Hepatitis A Vaccines (1 of 2 - Risk 2-dose series) 10/27/1987 Pneumococcal Vaccine: 50+ Years (2 of 2 - PCV) 02/03/2018 02/03/2017 Zoster Vaccines (1 of 2) 2018 Colorectal Cancer Screening: Colonoscopy 05/11/2022 HIV Screening 05/11/2022 Hepatitis C Screening 05/11/2022 Medicare Annual Wellness Visit 05/11/2022 Social Influencers of Health Screening 05/11/2022 Cervical Cancer Screening: P ap Smear 11/29/2022 11/30/2019 Depression Screening 06/09/2024 COVID-19 Vaccine (1 - 2023-2 5 season) 2025 Influenza Vaccine (#1) 2025 07/08/2019 DTaP,Tdap,and Td Vaccines (2 - Td or Tdap) 02/08/2025 02/08/2015 Breast Cancer Screening 01/12/2027 01/13/20, 04/25/2020, 11/11/2018 Osteoporosis Screening (Bone Density Screening) 01/12/2035 01/12/2025 MMR Vaccines Aged Out 05/17/2015, 04/19/2015 No longer eligible based on patient's age to complete this topic Hepatitis B Vaccines Completed 10/31/2015, 05/17/2015, 04/19/2015 HIB Vaccines Aged Out No longer eligi ble based on patient's age to complete this topic HPV Vaccines Aged Out No longer eligi ble based on patient's age to complete this topic IPV Vaccines Aged Out No longer eligi ble based on patient's age to complete this topic Meningococcal ACWY Vaccine Aged Out N o longer eligible based on patient's age to complete this topic Meningococcal B Vaccine Aged Out No l onger eligible based on patient's age to complete this topic RSV Immunization Patients Under 20 months Aged Out No longer eligible b ased on patient's age to complete this topic Varicella Vaccines Aged Out No longer eligible based on patient's age to complete this topic Procedures Procedure Name Priority Date/Time Associated Diagnosis Comments MG MAMMO DIGITAL SCREENING W WALLY BILAT Routine 01/12/2025 9:55 AM EDT Encounter for screening mammogram for malignant neoplasm of breast BD BONE DENSITY DXA AXIAL SKELETON Routine 01/12/2025 9:50 AM EDT Encounter for screening mammogram for malignant neoplasm of breast Other specified disorders of bone density and structure, multiple sites PAP SMEAR Routine 11/30/2019 from Last 3 Months or Most Recently Relevant to Health Maintenance Results * MG Mammo Digital Screening w Wally bilat (01/12/2025 9:55 AM EDT) Anatomical Region Laterality Modality Breast Bilateral Mammography 01/12/2025 11:1 2 AM EDT Impressions 01/12/2025 11:43 AM EDT No evidence of breast malignancy. BI-RADS CATEGORY: 1 - NEGATIVE RECOMMENDATION: Screening bilateral mammogram is recommended in 1 year. Mammo Location: [facility], [address] [place] [address], [id number], . -------- FINAL REPORT -------- Dictated By: Jen Mittal Dictated Date: 01/12/2025 11:12 ET Assigned Physician: Jen Mittal Reviewed and Electronically Signed By: Jen Mittal Signed Date: 01/12/2025 11:43 ET Workstation ID: [id number] Transcribed By: Self Edit Transcribed Date: 01/12/2025 11:12 ET Narrative 01/12/2025 11:43 AM EDT CLINICAL: 54 years old, Female, routine annual exam. COMPARISON: 04/25/20192019 and 11/11/2018 TECHNIQUE: Bilateral MLO and CC views were obtained digitally with 3-D mammogram (digital breast tomosynthesis). Computer-aided detection was utilized in evaluation of this exam (CAD). FINDINGS: There is no evidence of suspicious mass or architectural distortion. No worrisome calcifications are evident. There has been no significant change from prior exam(s). BREAST DENSITY: B - There are scattered areas of fibroglandular density. Procedure Note Jen Mittal MD - 01/12/2025 CLINICAL: 54 years old, Female, routine annual exam. COMPARISON: 04/25/20192019 and 11/11/2018 TECHNIQUE: Bilateral MLO and CC views were obtained digitally with 3-Dmammogram (digital breast tomosynthesis). Computer-aided detection wasutilized in evaluation of this exam (CAD). FINDINGS: There is no evidence of suspicious mass or architectural distortion. Noworrisome calcifications are evident. There has been no significantchange from prior exam(s). BREAST DENSITY: B - There are scattered areas of fibroglandular density. IMPRESSION: No evidence of breast malignancy. BI-RADS CATEGORY: 1 - NEGATIVE RECOMMENDATION: Screening bilateral mammogram is recommended in 1 year. Mammo Location: [facility], [address] [place] [address], [id number], . -------- FINAL REPORT -------- Dictated By: Jen Mittal Dictated Date: 01/12/2025 11:12 ET Assigned Physician: Jen Mittal Reviewed and Electronically Signed By: Jen Mittal Signed Date: 01/12/2025 11:43 ET Workstation ID: [id number] Transcribed By: Self Edit Transcribed Date: 01/12/2025 11:12 ET Albina RED IMG BI PROCEDURES Final Result * BD Bone Density DXA Axial Skeleton (01/12/2025 9:50 AM EDT) Anatomical Region Laterality Modality Wrist, Hip, L-spine Bone Densito metry 01/12/2025 10:0 9 AM EDT Impressions 01/12/2025 10:10 AM EDT 1. Osteoporosis. 2. FRAX analysis yields a 10-year probability of major osteoporotic fracture of 14.7% and a 10-year probability of hip fracture of 2.0%. Code 59496 -------- FINAL REPORT -------- Dictated By: Gee Harrison Dictated Date: 01/12/2025 10:09 ET Assigned Physician: Gee Harrison Reviewed and Electronically Signed By: Gee Harrison Signed Date: 01/12/2025 10:10 ET Workstation ID: [id number] Transcribed By: Self Edit Transcribed Date: 01/12/2025 10:09 ET Narrative 01/12/2025 10:10 AM EDT HISTORY: The patient is a 54-year-old postmenopausal female with clinical concern for metabolic bone disease. FINDINGS: Dual energy x-ray absorptiometry of the lumbar spine and femurs is performed. The mean bone mineral density at L1-L4 is 0.782 gm/cm2 which is 66% of that of young normals and 74% of that of age matched controls. This yields a T-score of -3.3 and a Z-score of -2.3 which is diagnostic of osteoporosis. The mean bone mineral density of the femurs bilaterally is 0.766 gm/cm2 which is 76% of that of young normals and 85% of that of age matched controls. This yields a T-score of -1.9 and a Z-score of -1.1 which is diagnostic of osteopenia. However, the T-score of the left femoral neck is -2.6 which is diagnostic of osteoporosis. Procedure Note Gee Harrison MD - 01/12/2025 HISTORY: The patient is a 54-year-old postmenopausal female with clinicalconcern for metabolic bone disease. FINDINGS: Dual energy x-ray absorptiometry of the lumbar spine and femursis performed. The mean bone mineral density at L1-L4 is 0.782 gm/cm2 whichis 66% of that of young normals and 74% of that of age matched controls.This yields a T-score of -3.3 and a Z-score of -2.3 which is diagnostic ofosteoporosis. The mean bone mineral density of the femurs bilaterally is 0.766 gm/ag4ojyeb is 76% of that of young normals and 85% of that of age matchedcontrols. This yields a T-score of -1.9 and a Z-score of -1.1 which isdiagnostic of osteopenia. However, the T-score of the left femoral neck is-2.6 which is diagnostic of osteoporosis. IMPRESSION: 1. Osteoporosis. 2. FRAX analysis yields a 10-year probability of major osteoporoticfracture of 14.7% and a 10-year probability of hip fracture of 2.0%. Code 33249 -------- FINAL REPORT -------- Dictated By: Gee Harrison Dictated Date: 01/12/2025 10:09 ET Assigned Physician: Gee Harrison Reviewed and Electronically Signed By: Gee Harrison Signed Date: 01/12/2025 10:10 ET Workstation ID: [id number] Transcribed By: Self Edit Transcribed Date: 01/12/2025 10:09 ET Albina RED IMG DXA PROCEDURES Final Result * Pap smear (11/30/2019) 11/30/2019 Narrative HISTORICAL TESTING LAB RESULTING AGENCY - 12/06/2019 2:15 PM EDT [id number] THINPREP PAP, IMAGED: NEGATIVE FOR SQUAMOUS INTRAEPITHELIAL LESION AND MALIGNANCY . ATROPHY. GODFREY BUTTERFIELD , LORENA(ASCP) (CASE ELECTRONICALLY SIGNED 12 06 2019) RESULT OF APTIMA HIGH RISK HPV ASSAY: HIGH RISK HPV: NEGATIVE (SEROTYPES 16,18,31,33,35,39,45,51,52,56,58,59,66,68) COMPLETED ON 2019-12-02 ADEQUACY: SATISFACTORY ENDOCERVICAL/TRANSFORMATION ZONE COMPONENT PRESENT. SOURCE: THINPREP PAP HPV ANY DX: REFLEX 16 AND 18, CERVICAL, IMAGED CLINICAL INFORMATION: HPV ANY DIAGNOSIS. HORMONES, NEG LPS 2017, Z12.4 Annita Arenas [facility] LAB CYTOLOGY ORDERABLES Final Result HISTORICAL TESTING LAB RESULTING AGENCY from Last 3 Months or Most Recently Relevant to Health Maintenance Insurance MEDICAID - [place] [employer] MEDICARE Care Teams Natural Resources Extension Educator Relationship Specialty Start Date End Date Albina Stubbs PA [address] [place] [address] [address] [place] [phone] [facility] - General 01/12/25
== END 2025-02-21 11:31 | disposition home or self-care (01) ==
LOC: HO.HBS 11:21
PROVIDERS: PCP Nurse Practitioner Family; Visit Provider Physician Assistant Surgical
DX: E66.3 Overweight (principal); Z68.25 Body mass index [BMI] 25.0-25.9, adult; Z90.3 Acquired absence of stomach [part of]; Z98.84 Bariatric surgery status
CPT/HCPCS: 99213; G2211